=== PATIENT | male | born 1950 | race African-American/Black ===

== ENCOUNTER 2023-01-02 04:18 | Day surgery (SDC) | payer OTHER ==
[2022-12-29 12:51] VITALS: BMI 21.1
[~2023-01-02 04:18] MED LIST: BUPIVACAINE HCL/PF 0.5% (5MG/ML) 10 ML VIAL IJ ONE; DEXAMETHASONE SOD PHOSPHATE 4 MG/1 ML VIAL IVPUSH ONE; LIDOCAINE HCL 2% (50ML VIAL) INF ONE; ceFAZolin SODIUM 1 GM VIAL IVPB ONE
[2023-01-02 09:28] VITALS: RESP 20
[2023-01-02] MEDS ORDERED: LIDOCAINE HCL 2% (20ML MULTI-DOSE VIAL) ONE (10:38)
[2023-01-02] MEDS ORDERED: DEXAMETHASONE SOD PHOSPHATE 4 MG/1 ML VIAL ONE (10:39)
[2023-01-02] MEDS ORDERED: PROPOFOL 60 ML ONE (11:16)
[2023-01-02] MEDS ORDERED: LIDOCAINE HCL 2% (50ML VIAL) INF ONE (11:28)
[2023-01-02] MEDS ORDERED: BUPIVACAINE HCL/PF 0.5% (5MG/ML) 10 ML VIAL IJ ONE (11:28)
[2023-01-02 14:36] VITALS: TEMP 96.8
[2023-01-02 14:40] VITALS: BP 120/72; PULSE 63
== END 2023-01-02 15:00 | disposition home or self-care (01) ==
LOC: JASU-SURG 04:18
PROVIDERS: ATTEND Podiatrist
PROC: 0SNQ0ZZ Release Left Toe Phalangeal Joint, Open Approach (ICD-10-PCS; 2023-01-02)
PROC: 0SRQ0JZ Replacement of Left Toe Phalangeal Joint with Synthetic Substitute, Open Approach (ICD-10-PCS; principal; 2023-01-02 11:00)
DX: M20.42 Other hammer toe(s) (acquired), left foot (principal)
CPT/HCPCS: 88305-TC; 88311-TC